=== PATIENT | female | born 1990 | race Two or more races ===

== ENCOUNTER 2019-12-02 18:21 | Emergency (ER) | payer MEDICARE ==
[~2019-12-02] VITALS: Ht 177.8 cm; Wt 82.0 kg
[2019-12-02] MEDS ORDERED: LORAZEPAM 2MG/ML CPJ IM STA (19:42)
[2019-12-02] MEDS ORDERED: DIPHENHYDRAMINE 50MG/ML VIAL IM STA (19:42)
[2019-12-02] MEDS ORDERED: SODIUM CHLORIDE 0.9% 1,000 ML IV ONE (19:42)
[2019-12-02] MEDS ORDERED: HALOPERIDOL LACTATE 5MG/ML VIAL IM ONE (19:45)
[2019-12-02] MEDS ORDERED: DEXTROSE 50% WATER 50ML SYRINGE IV ONE ×3 (20:00→22:10)
[2019-12-02 20:47] LABS: HEMATOCRIT. 37.4 % (36.0-48.0); HEMOGLOBIN. 12.3 g/dL (12.0-16.0); MEAN CORPUSCULAR HEMOGLOBIN 27.6 pg (28.0-32.0); MEAN CORPUSCULAR VOLUME 84.3 fL (81.0-99.0); MEAN PLATELET VOLUME 8.8 fl (7.4-10.4); PLATELET 258 x1000/uL (130-400); RED BLOOD CELL COUNT 4.44 mill/uL (4.2-5.4); RED CELL DISTRIBUTION WIDTH 15.9 % (11.6-14.6)
[2019-12-02 20:56] LABS: CHLORIDE 105 mEq/L (98-107)
[2019-12-02 20:58] LABS: HCG SCREEN NEGATIVE
[2019-12-02 21:02] LABS: ETHANOL BLOOD < 10 mg/dL
[2019-12-02 21:23] LABS: PLATELET ESTIMATE NORMAL
[2019-12-02 22:17] LABS: CLARITY URINE CLOUDY (CLEAR); COLOR URINE YELLOW (YELLOW); KETONES URINE 1+ (NEGATIVE); LEUKOCYTE ESTERASE URINE TRACE (NEGATIVE); NITRITE URINE POSITIVE (NEGATIVE); OCCULT BLOOD URINE NEGATIVE (NEGATIVE); PROTEIN URINE 1+ (NEGATIVE); SPECIFIC GRAVITY URINE 1.023 (1.005-1.030)
[2019-12-02 22:35] LABS: *BARBITURATES SCREEN URINE NEGATIVE (NEGATIVE)
[2019-12-02 22:36] LABS: *COCAINE SCREEN URINE NEGATIVE (NEGATIVE); METHADONE URINE SCREEN NEGATIVE (NEGATIVE); OPIATES URINE SCREEN NEGATIVE (NEGATIVE); PHENCYCLIDINE URINE SCREEN NEGATIVE (NEGATIVE)
[2019-12-02 22:46] LABS: *AMPHETAMINES SCREEN URINE PRESUMTIVE POSITIVE (NEGATIVE); *BENZODIAZEPINES SCREEN URINE PRESUMTIVE POSITIVE (NEGATIVE); CANNABINOID URINE SCREEN PRESUMTIVE POSITIVE (NEGATIVE)
[2019-12-03] MEDS ORDERED: CEPHALEXIN 250MG CAPSULE PO NR (00:15)
[2019-12-03] MEDS ORDERED: DEXT 10% WATER 1,000 ML IV ONE (00:47)
[2019-12-03] MEDS ORDERED: DEXTROSE 50% WATER 50ML SYRINGE IV ONE (01:00)
[2019-12-03 11:55] VITALS: BP 116/63
== END 2019-12-03 15:09 | disposition home or self-care (01) ==
LOC: ER 18:21
DX: F23 Brief psychotic disorder (principal); E16.2 Hypoglycemia, unspecified; F15.10 Other stimulant abuse, uncomplicated; N39.0 Urinary tract infection, site not specified
CPT/HCPCS: 36415; 70450; 80053; 80305; 80307; 80320; 80329; 81003; 81025; 82962; 84703; 85025; 93005; 96361; 96365; 96366; 96372; 96376; 99284; J1200; J1630; J2060; J7030; G0480